=== PATIENT | female | born 1980 | race Caucasian/White ===

== ENCOUNTER 2017-01-01 22:22 | Emergency (ER) | payer BC, MEDICAID ==
[2017-01-01] MEDS ORDERED: Metoclopramide 10 MG/2 ML SDV IVPUSH ONE (22:38)
[2017-01-01] MEDS ORDERED: Sodium Chloride 0.9% 1,000 ML IV ONE (22:38)
--- NOTE | 2017-01-01 22:38 | EDM.PDOC ---
ED HPI GENERAL MEDICAL PROBLEM - General Chief Complaint: Headache Stated Complaint: MIGRAINE Time Seen by Provider: 01/01/17 23:24 - History of Present Illness INITIAL COMMENTS - FREE TEXT/NARRATIVE: HISTORY AND PHYSICAL: History of present illness: Patient is a 36-year-old female with a history of double mastectomy related to triple receptor positive breast cancer currently on tamoxifen also has history of migraine headaches and presents with a concern of headache she's had photophobia nausea denies vomiting denies trauma denies any other neurological signs or symptoms Review of systems: As per history of present illness and below otherwise all systems reviewed and negative. Past medical history: As per history of present illness and as reviewed below otherwise noncontributory. Surgical history: As per history of present illness and as reviewed below otherwise noncontributory. Social history: No reported history of drug or alcohol abuse. Family history: As per history of present illness and as reviewed below otherwise noncontributory. Physical exam: HEENT: Atraumatic, normocephalic, pupils reactive, negative for conjunctival pallor or scleral icterus, mucous membranes moist, throat clear, neck supple, nontender, trachea midline. Lungs: Clear to auscultation, breath sounds equal bilaterally, chest nontender. Heart: S1S2, regular, negative for clicks, rubs, or JVD. Abdomen: Soft, nondistended, nontender. Negative for masses or hepatosplenomegaly. Negative for costovertebral tenderness. Pelvis: Stable nontender. Genitourinary: Deferred. Rectal: Deferred. Extremities: Atraumatic, negative for cords or calf pain. Neurovascular unremarkable. Neuro: Awake, alert, oriented. Cranial nerves II through XII unremarkable. Cerebellum unremarkable. Motor and sensory unremarkable throughout. Exam nonfocal. Diagnostics: CT brain Therapeutics: Normal saline 1 L bolus Reglan 10 mg IV Toradol 30 mg IV Benadryl 50 mg IV and Zofran 4 mg IV Impression: #1 migraine headache Definitive disposition and diagnosis as appropriate pending reevaluation and review of above. Headache Pain Score (Numeric/FACES): 9 - Related Data Allergies Allergy/AdvReac Type Severity Reaction Status Date / Time doxycycline Allergy Other Verified 01/01/17 22:30 Home Meds: Home Meds ClonazePAM [KlonoPIN] 0.5 mg PO DAILY PRN 01/01/17 [History] Tamoxifen [Nolvadex] 20 mg PO DAILY 01/01/17 [History] traMADol [Ultram] 50 mg PO DAILY PRN 01/01/17 [History] Past Medical History HEENT History: Reports: None Respiratory History: Reports: Asthma Neurological History: Reports: Migraines Endocrine/Metabolic History: Reports: None Oncologic (Cancer) History: Reports: Breast Other Oncologic History: right arm CA - Infectious Disease History Infectious Disease History: Reports: Chicken Pox, Shingles - Past Surgical History HEENT Surgical History: Reports: Tonsillectomy Female Surgical History: Reports: Hysterectomy Endocrine Surgical History: Reports: Thyroidectomy Social & Family History - Family History Family Medical History: Noncontributory - Tobacco Use Smoking Status *Q: Never Smoker Second Hand Smoke Exposure: No - Caffeine Use Caffeine Use: Reports: Coffee Caffeine Use Comment: 2-3cups/day - Recreational Drug Use Recreational Drug Use: No ED ROS GENERAL - Review of Systems Review Of Systems: ROS reveals no pertinent complaints other than HPI. ED EXAM, GENERAL - Physical Exam Exam: See Below (See dictation) Course - Vital Signs Last Recorded V/S: Last Vital Signs Temp 36.0 C 01/01/17 22:26 Pulse 70 01/01/17 22:26 Resp 19 01/01/17 22:26 BP 116/72 01/01/17 22:26 Pulse Ox 98 01/01/17 22:26 - Orders/Labs/Meds Orders: Active Orders 24 hr Category Date Time Status Head wo Cont [CT] Stat Exams 01/01/17 22:37 Ordered Sodium Chloride 0.9% [Normal Saline] 1,000 ml Med 01/01/17 22:38 Active IV .Bolus Medication Orders Sodium Chloride (Normal Saline) 1,000 mls @ 999 mls/hr IV .Bolus ONE Stop: 01/01/17 23:38 Last Admin: 01/01/17 22:57 Dose: 999 mls/hr Meds: Medications Generic Name Dose Route Start Last Admin Trade Name Freq PRN Reason Stop Dose Admin Sodium Chloride 1,000 mls @ 999 mls/hr 01/01/17 22:38 01/01/17 22:57 Normal Saline IV 01/01/17 23:38 999 mls/hr .Bolus ONE Administration Discontinued Medications Generic Name Dose Route Start Last Admin Trade Name Freq PRN Reason Stop Dose Admin Diphenhydramine HCl 50 mg 01/01/17 22:40 01/01/17 23:06 Benadryl IVPUSH 01/01/17 22:41 50 mg ONETIME ONE Administration Ketorolac Tromethamine 30 mg 01/01/17 22:39 01/01/17 23:04 Toradol IVPUSH 01/01/17 22:40 30 mg ONETIME ONE Administration Metoclopramide HCl 10 mg 01/01/17 22:38 01/01/17 23:01 Reglan IVPUSH 01/01/17 22:39 10 mg ONETIME ONE Administration Ondansetron HCl 4 mg 01/01/17 22:40 01/01/17 23:03 Zofran IVPUSH 01/01/17 22:41 4 mg ONETIME ONE Administration Departure - Departure Time of Disposition: 23:24 Disposition: Home, Self-Care 01 Condition: Good Clinical Impression: Migraine - Discharge Information Forms: ED Department Discharge Additional Instructions: The following information is given to patients seen in the emergency department who are being discharged to home. This information is to outline your options for follow-up care. We provide all patients seen in our emergency department with a follow-up referral. The need for follow-up, as well as the timing and circumstances, are variable depending upon the specifics of your emergency department visit. If you don't have a primary care physician on staff, we will provide you with a referral. We always advise you to contact your personal physician following an emergency department visit to inform them of the circumstance of the visit and for follow-up with them and/or the need for any referrals to a consulting specialist. The emergency department will also refer you to a specialist when appropriate. This referral assures that you have the opportunity for followup care with a specialist. All of these measure are taken in an effort to provide you with optimal care, which includes your followup. Under all circumstances we always encourage you to contact your private physician who remains a resource for coordinating your care. When calling for followup care, please make the office aware that this follow-up is from your recent emergency room visit. If for any reason you are refused follow-up, please contact the [facility] emergency department at and asked to speak to the emergency department charge nurse. Follow-up primary medical doctor 1-2 days continue current medications return as needed as discussed - My Orders Last 24 Hours: My Active Orders 01/01/17 22:37 Head wo Cont [CT] Stat 01/01/17 22:38 Sodium Chloride 0.9% [Normal Saline] 1,000 ml IV .Bolus - Assessment/Plan Last 24 Hours: My Active Orders 01/01/17 22:37 Head wo Cont [CT] Stat 01/01/17 22:38 Sodium Chloride 0.9% [Normal Saline] 1,000 ml IV .Bolus
[2017-01-01] MEDS ORDERED: Ketorolac 30 MG/ML SDV IVPUSH ONE (22:39)
[2017-01-01] MEDS ORDERED: Ondansetron 4 MG/2 ML SDV IVPUSH ONE (22:40)
[2017-01-01] MEDS ORDERED: diphenhydrAMINE 50 MG/ML SDV IVPUSH ONE (22:40)
[2017-01-02 00:38] VITALS: BP 107/66
--- NOTE | 2017-01-02 12:12 | CT ---
EXAM DATE: 01/01/17 PATIENT'S AGE: 36 Patient: ROB ROMO Facility: [place], [place] Site . Site : [id number] Study: CT Head WO CONT [id number]/[id number] 11:27:22 PM Ordering Physician: Doctor Mclean Final Report: INDICATION: HEADACHE FOR 2 DAYS WITH WORSENING AND NAUSEA CT HEAD WITHOUT CONTRAST TECHNIQUE: Multiple axial CT images were performed through the head without intravenous contrast administration. COMPARISON: No previous studies are currently available for comparison. FINDINGS: No acute intracranial hemorrhage is identified. No extra-axial collections are evident and there is no mass effect or midline shift. Ventricles are normal in size and configuration. Brain parenchyma appears normal with unremarkable mae-white differentiation. Osseous structures are within normal limits and no fractures are seen. Included portions of the paranasal sinuses and mastoid air cells are normally aerated. IMPRESSION: Normal non-contrast head CT. KELLI SUTTON MD [employer] Dictated by: Rangel Sutton MD @ 01/01/2017 23:48:29 (Electronic Signature) Report Signed by Proxy. [facility]
== END 2017-01-02 | disposition home or self-care (01) ==
LOC: MW.ED 22:22
DX: G43.909 Migraine, unspecified, not intractable, without status migrainosus (principal); J45.909 Unspecified asthma, uncomplicated; Z85.3 Personal history of malignant neoplasm of breast; Z90.710 Acquired absence of both cervix and uterus; E89.0 Postprocedural hypothyroidism; Z98.890 Other specified postprocedural states; Z79.899 Other long term (current) drug therapy; Z88.1 Allergy status to other antibiotic agents
CPT/HCPCS: 70450; 96361; 96374; 96375; 99284; J1200; J1885; J2405; J2765; J7040; 99285